=== PATIENT | male | born 1985 | race Two or more races ===

== ENCOUNTER 2018-11-10 07:09 | Outpatient (CLI) | payer OTHER ==
--- NOTE | 2018-11-10 10:24 | MRI Report ---
Reason: PAIN IN LEFT SHOULDER Procedure Date: 11/10/2018 Accession Number: [id number] / [id number] Procedure: MRI - Shoulder LT W/O CPT Code: FULL RESULT: EXAM: LEFT SHOULDER MRI WITHOUT CONTRAST EXAM DATE: 11/10/2018 07:27 AM. CLINICAL HISTORY: PAIN IN LEFT SHOULDER. COMPARISON: None. TECHNIQUE: Multiplanar, multisequence T1-weighted and fluid-sensitive sequences of the shoulder without contrast. Other: None. FINDINGS: Rotator cuff: Rotator cuff tendons appear intact. No rotator cuff tear identified. No rotator cuff muscle atrophy or fatty replacement. Long head biceps tendon: Intact demonstrating normal course, signal and morphology. Labrum: Intact. No tear is identified. Bones and articular surfaces: No significant articular cartilage defects are seen. Acromioclavicular joint: Normal appearance. Type II acromion. IMPRESSION: No MRI abnormalities in the shoulder. [facility]
== END 2018-11-10 07:10 | disposition home or self-care (01) ==
LOC: DI 07:09
PROVIDERS: ATTEND General Practice
DX: M25.512 Pain in left shoulder (principal)